=== PATIENT | female | born 1985 | race Caucasian/White ===

== ENCOUNTER 2018-09-16 20:24 | Emergency (ER) | payer OTHER ==
[~2018-09-16] VITALS: Ht 165.1 cm; Wt 61.7 kg
[2018-09-16 21:00] LABS: URINE BILIRUBIN NEGATIVE (Negative); URINE BLOOD NEGATIVE (Negative); URINE CLARITY CLEAR; URINE COLOR YELLOW; URINE GLUCOSE-RANDOM NEGATIVE (Negative); URINE KETONES NEGATIVE (Negative); URINE LEUKOCYTES NEGATIVE (Negative); URINE NITRITE NEGATIVE (Negative); URINE PROTEIN NEGATIVE (Negative); URINE SPECIFIC GRAVITY <= 1.005 (1.005-1.030); URINE UROBILINOGEN 0.2 E.U./dl (0.2-1.0)
[2018-09-16 21:01] LABS: ABSOLUTE EOSINOPHILS 0.1 thou/uL (0.0-0.7); ABSOLUTE LYMPHOCYTES 1.1 thou/uL (0.8-5.3); ABSOLUTE MONOCYTES 0.4 thou/uL (0.0-1.2); ABSOLUTE NEUTROPHILS 4.6 thou/uL (1.6-8.1); BASOPHILS 0.7 %; EOSINOPHILS 1.5 %; HEMOGLOBIN 13.1 gm/dL (12.0-15.0); MCH 30.4 pg (26.0-34.0); MCHC 34.4 g/dL (28.0-37.0); MCV 88.5 fL (80.0-100.0); MONOCYTES 6.9 %; MPV 8.8 fl. (7.2-11.1); NUCLEATED RBCS 0 /100WBC; PLATELET COUNT* 153 thou/uL (150-400); POLYS 72.9 %; RBC 4.29 mil/uL (4.20-5.00); RDW-CV 13.2 % (10.5-14.5); WBC 6.3 thou/uL (4.0-11.0)
[2018-09-16 21:19] LABS: ALBUMIN 3.5 g/dL (3.4-5.0); ALKALINE PHOSPHATASE 54 U/L (46-116); ANION GAP 10 mmol/L (7-16); BUN 17 mg/dL (7-18); CHLORIDE 104 mmol/L (98-107); CO2 26 mmol/L (21-32); CREATININE 0.9 mg/dL (0.6-1.3); GLUCOSE 109 mg/dL (70-99); POTASSIUM 3.6 mmol/L (3.5-5.1); SGOT 22 U/L (15-37); SGPT 24 U/L (30-65); SODIUM 140 mmol/L (136-145); TOTAL BILIRUBIN 0.2 mg/dL (<0.1-1.0); TOTAL PROTEIN 6.6 g/dL (6.4-8.2); TROPONIN-I LEVEL <0.06 ng/mL (<0.06)
[2018-09-16] MEDS ORDERED: ROBAXIN 750 MG750 M1 PO (22:03)
[2018-09-16 22:18] VITALS: BP 122/72
--- NOTE | 2018-09-17 12:32 | EKG ---
[place] [address] ELECTROCARDIOGRAM REPORT Name: JENNA HOPE Room: [facility]#: [id number] Admission: 09/16/18 Attend Phys: Discharge: 09/16/18 Date of : 89 Report #: [id number] THIS REPORT FOR: //name// [facility] ED Test Date: 2018-09-16 Test Time: 20:53:52 Pat Name: JENNA HOPE Department: Room: Gender: F Transportation Maintenance Supervisor: Marya FERNANDEZ : 1985 Requested By: Avila Rush Order Number: [id number] MD: Shekhar Arevalo Measurements Intervals [place] Rate: 72 P: 19 VT: 163 QRS: 87 QRSD: 112 T: 12 QT: 400 QTc: 438 Interpretive Statements Sinus rhythm Incomplete right bundle branch block No previous ECG available for comparison Electronically Signed On 09-17-2018 12:31:51 CDT by Shekhar Arevalo [email or web address] <ELECTRONICALLY SIGNED> By: Shekhar Arevalo MD, [facility] 09/17/18 1231 [id number] 52 Shekhar Arevalo MD, FAC /EPI
== END 2018-09-16 22:21 | disposition home or self-care (01) ==
LOC: M.ERS 20:24
PROVIDERS: Nurse Practitioner Family
DX: M79.10 Myalgia, unspecified site (principal); R07.89 Other chest pain; M54.2 Cervicalgia; Z88.2 Allergy status to sulfonamides